=== PATIENT | female | born 1975 | race Caucasian/White ===

== ENCOUNTER → 2024-09-04 | Outpatient (CLI) | payer OTHER | END | disposition home or self-care (01) | LOC: LAB 18:53 → LAB SHORT 18:53 | PROVIDERS: Family Medicine | DX: Z12.4 Encounter for screening for malignant neoplasm of cervix (principal) | CPT/HCPCS: G0123 ==

== ENCOUNTER 2025-01-24 08:30 | Day surgery (SDC) | payer OTHER ==
[2025-01-24] VITALS (18 sets, daily range): BP systolic 91–150; BP diastolic 67–100
[~2025-01-24] VITALS: Ht 165.1 cm; Wt 95.0 kg
[~2025-01-24 08:30] MED LIST: Aspir 8181 MG PO; BUPR100 PO; Lactated Ringer's 1,000 ML IV SCH; propofoL 40 ML IV ONE
--- NOTE | 2025-01-24 09:18 | NUR ---
01/24/25 0918 Penny Barreot CONFIRMED AND REVIEWED H&P, MEDCICATIONS, ALLERGIES, MEDICAL HISTORY, RESPIRATORY HISTORY, VITAL SIGNS, 3-LEAD EKG, CONSENTS, AND PHYSICIAN ORDERS. PATIENT CONFIRMS NPO STATUS AND AGREES WITH SCHEDULED PROCEDURE. MONITOR INTACT WITH CONTINUOUS PULSE OXIMETRY, CAPNOGRAPHY, 3-LEAD EKG, INTERMITTENT BP. SUPPLEMENTAL O2 TO BE TITRATED THROUGHOUT PROCEDURE TO MAINTAIN O2 SATURATION ABOVE 90%. PATIENT DETERMINED TO BE ASA APPROPRIATE FOR PROPOFOL SEDATION PRIOR TO START OF PROCEDURE BY DR. REYNA MALLAMPATI CLASS 2 AIRWAY: COMPLETE VISUALIZATION OF THE UV[facility].
[2025-01-24] MEDS ORDERED: Midazolam HCl 1MG / ML 2ML Vial ONE (09:23)
--- NOTE | 2025-01-24 09:57 | NUR ---
D/C INSTRUCTIONS GIVEN TO PT, UNDERSTANDING VERBALIZED. PT DRESSED SELF W/O ASSIST. PT DENIES PAIN/NAUSEA, VSS, ON RA. PT HAS ALL BELONGINGS, INCLUDING CELLPHONE. PT WHEELED TO MAIN ENTRANCE WHERE SHE WILL BE DRIVEN HOME BY FRIEND IN PRIVATE VEHICLE. STEADY GAIT NOTED UPON TRANSFER FROM TO VEHICLE. NO VISIBLE SIGNS OF DISTRESS NOTED.
== END 2025-01-24 23:00 | disposition home or self-care (01) ==
LOC: ORSCMMR 08:30 → ORD 09:30 → ORSCMMR 09:30
PROVIDERS: Internal Medicine Gastroenterology
PROC: 0DBN8ZX Excision of Sigmoid Colon, Via Natural or Artificial Opening Endoscopic, Diagnostic (ICD-10-PCS; principal; 2025-01-24 09:30)
PROC: 0DBL8ZX Excision of Transverse Colon, Via Natural or Artificial Opening Endoscopic, Diagnostic (ICD-10-PCS; principal; 2025-01-24 09:30)
DX: Z12.11 Encounter for screening for malignant neoplasm of colon (principal); K63.5 Polyp of colon; D12.3 Benign neoplasm of transverse colon; D12.5 Benign neoplasm of sigmoid colon; Z79.82 Long term (current) use of aspirin; F32.A Depression, unspecified; Z79.899 Other long term (current) drug therapy
CPT/HCPCS: 88305; J2250; J2704; J7120